=== PATIENT | male | born 1995 | race Caucasian/White ===

== ENCOUNTER → 2018-01-27 06:59 | Outpatient (CLI) | payer OTHER, SELFPAY ==
--- NOTE | 2018-01-27 | DI.MRI.S_ITS ---
PROCEDURE: MR KNEE RT WO CON INDICATIONS: PAIN IN RIGHT KNEE TECHNIQUE: Noncontrast sagittal PD fast spin echo and T2 fast spin echo with fat saturation, sagittal 3-D FLASH with fat saturation; coronal T1 spin echo and PD fast spin echo with fat saturation, and axial PD fast spin echo with fat saturation through the knee. COMPARISON: None. FINDINGS: Image quality: Excellent. Menisci: The medial and lateral menisci demonstrate normal morphology and internal signal. The meniscal root ligaments appear intact. Cruciate ligaments: There is full thickness ACL rupture. PCL is intact. Medial structures: The medial collateral ligament appears intact. The posterior oblique ligament, semimembranosus tendon insertions, oblique popliteal ligament, and meniscocapsular junction appear intact. Visualized portions of the pes anserinus tendons appear normal. No abnormal bursal fluid. Lateral structures: The lateral collateral ligament, long and short heads of the biceps femoris tendon appear intact. The popliteus tendon appears normal; the popliteofibular ligament appears intact. The posterosuperior and anteroinferior popliteomeniscal fascicles appear intact. The arcuate and fabellofibular ligaments appear intact, on either side of the lateral inferior geniculate artery. Iliotibial band appears normal. Anterior structures: The quadriceps and patellar tendons appear intact. Patellar alignment is normal. No femoral trochlear dysplasia or ventral trochlear prominence. No edema in the infrapatellar fat pad. Bones and cartilage: Marrow edema involving the posterior periphery of proximal tibia extending to the tibial plateaus are seen. No discrete fracture line is identified. Articulating cartilages are grossly intact. Patellar cartilage is intact. Joint space: There is moderate amount of knee joint fluid. No Ozuna's cyst. Normal appearing synovial plicae are incidentally noted. IMPRESSION: 1. Full-thickness ACL rupture. PCL is intact. 2. Bony contusion involving posterior periphery of proximal tibial shaft extending to tibial plateaus. No gross fracture or dislocation. Moderate amount of joint effusion. 3. No evidence of focal meniscal tear. Dictated by: Nikolas Flores M.D. on 01/27/2018 at 10:45 Approved by: Nikolas Flores M.D. on 01/27/2018 at 10:48
== END ==
PROVIDERS: Visit Provider General Practice
DX: M25.561 Pain in right knee (principal); S83.511A Sprain of anterior cruciate ligament of right knee, initial encounter; S80.01XA Contusion of right knee, initial encounter; M25.461 Effusion, right knee
CPT/HCPCS: 73721